=== PATIENT | male | born 1935 | race African-American/Black ===

== ENCOUNTER 2019-06-12 20:47 | Emergency (ER) | payer MEDICARE, OTHER ==
[~2019-06-12] VITALS: Ht 180.3 cm; Wt 57.0 kg
[~2019-06-12 20:47] MED LIST: ALPR0.5T6 PO; BYSTOLIC10 MG PO; LEXAPRO10 MG PO; ONDA-84 PO; SILO8CAP2 PO; SIMV40TA18 PO; ZOLP10TA PO
[2019-06-12] MEDS ORDERED: POLY10DR3 EACHEYE (21:04)
--- NOTE | 2019-06-12 21:05 | PHYS DOC ---
Past Medical History Past Medical History: Anxiety, GERD, High Cholesterol, Hypertension Additional Past Medical Histor: insomnia, BPH Past Surgical History: Other Additional Past Surgical Histo: inguinal hernia Smoking Status: Former Smoker Alcohol Use: None Drug Use: None Adult General Chief Complaint Chief Complaint: EYE PROBLEMS HPI HPI Patient is a 84 year old male who presents with 4 days of right eye itching, redness, drainage. States that it does feel like there is something in his eye at times. Patient denies injury or getting anything in his eye. He states he just awoke like this. He states that when he wakes up in the morning there is a lot of drainage around the eye. Afebrile. Patient is very hypertensive and he has not taken his blood pressure medication while as he is trying to find a new Primary care physician. Patient states that he does not know the name of his blood pressure medication. Review of Systems Review of Systems Eyes: Denies change in visual acuity. Conjunctiva redness, itching, drainage, irritation. Denies eye pain. [] All other systems were reviewed and found to be within normal limits, except as documented in this note. Current Medications Current Medications Current Medications Medications (Trade) Dose Ordered Sig/Valentino Start Time Stop Time Status Last Admin Dose Admin Clonidine HCl (Catapres) 0.1 mg 1X ONCE 06/12/19 21:30 06/12/19 21:31 DC 06/12/19 21:11 0.1 MG Allergies Allergies Allergies Coded Allergies Type Severity Reaction Last Updated Verified No Known Drug Allergies 06/02/14 No Physical Exam Physical Exam Constitutional: Well developed, well nourished, no acute distress, non-toxic appearance. [] HENT: Normocephalic, atraumatic, bilateral external ears normal, oropharynx moist, no oral exudates, nose normal. [] Eyes: PERRLA, EOMI, conjunctiva red, clear discharge. [] Neck: Normal range of motion, no tenderness, supple, no stridor. [] Cardiovascular:Heart rate regular rhythm, no murmur [] Lungs & Thorax: Bilateral breath sounds clear to auscultation [] Abdomen: Bowel sounds normal, soft, no tenderness, no masses, no pulsatile masses. [] Skin: Warm, dry, no erythema, no rash. [] Back: No tenderness, no CVA tenderness. [] Extremities: No tenderness, no cyanosis, no clubbing, ROM intact, no edema. [] Neurologic: Alert and oriented X 3, normal motor function, normal sensory function, no focal deficits noted. [] Psychologic: Affect normal, judgement normal, mood normal. [] Current Patient Data Vital Signs Vital Signs Date Time Temp Pulse Resp B/P (MAP) Pulse Ox O2 Delivery O2 Flow Rate FiO2 06/12/19 21:54 158/89 (112) 06/12/19 21:11 93 06/12/19 21:02 98.1 18 98 Room Air 98.1 EKG EKG [] Radiology/Procedures Radiology/Procedures [] Course & Med Decision Making Course & Med Decision Making Pertinent Labs and Imaging studies reviewed. (See chart for details) Patient rates discomfort a 5 out of 10. He states he can see out of the eye with out any changes to his vision. PERRLA. Conjunctivae is red. Clear drainage around the thigh is seen. Alert And oriented. Speaks in full clear sentences. Ambulatory with a steady gait. Denies chest pain, shortness of air, headache, dizziness, LOC, abdominal pain, nausea, vomiting, fever, weakness, numbness or tingling, vision changes. Patient's blood pressure has come down. Patient remains asymptomatic. Patient is stable and discharged home. [] Dragon Disclaimer Dragon Disclaimer This electronic medical record was generated, in whole or in part, using a voice recognition dictation system. Departure Departure Impression: Primary Impression: Conjunctivitis Disposition: HOME, SELF-CARE Condition: STABLE Referrals: SUGEY RIVERA MD (PCP) Patient Instructions: Conjunctivitis (Viral and Bacterial) Additional Instructions: Follow up with primary care physician as soon as possible. Take your blood pressure medications. Scripts Polymyxin B Sulf/Trimethoprim (POLYMYXIN B-TMP EYE DROPS) 10 Ml Drops 1 DROP EACHEYE QID for 7 Days, #10 ML 0 Refills Prov: ETHAN CORREA APRN 06/12/19 Problem Qualifiers Primary Impression: Conjunctivitis Conjunctivitis type: acute Acute conjunctivitis type: unspecified Laterality: right Qualified Codes: H10.31 - Unspecified acute conjunct ivitis, right eye ETHAN CORREA APRN Jun 12, 2019 21:05
[2019-06-12] MEDS ORDERED: cloNIDine HCL 0.1 MG TABLET PO ONE (21:30)
[2019-06-12 21:54] VITALS: BP 158/89
== END 2019-06-12 21:57 | disposition home or self-care (01) ==
LOC: ER 20:47
DX: H10.31 Unspecified acute conjunctivitis, right eye (principal); K21.9 Gastro-esophageal reflux disease without esophagitis; E78.00 Pure hypercholesterolemia, unspecified; I10 Essential (primary) hypertension; Z87.891 Personal history of nicotine dependence
CPT/HCPCS: 99283

== ENCOUNTER → 2019-10-27 | Outpatient (CLI) | payer MEDICARE, OTHER ==
[~2019-10-27] MED LIST changes: +POLY10DR3 EACHEYE
--- NOTE | 2019-10-27 13:05 | RAD ---
Examination: ABDOMEN COMPLETE History: Abdominal pain Comparison/Correlation: None Findings: Cholecystectomy noted. Hepatic echotexture is normal. Visualized common bile duct is unremarkable.. No biliary dilatation. Right kidney measures 9.4 cm in longitudinal. Left kidney measures 10.3 cm longitudinal. No hydronephrosis. Renal contours and echotexture are unremarkable. No upper abdominal ascites. Pancreas is obscured by bowel gas. Abdominal aorta and inferior vena cava are obscured by bowel gas. Spleen is unremarkable. Impression: No suspicious process. Electronically signed by: Freddy Mayers MD (10/27/2019 1:02 PM) [id number]
== END | disposition home or self-care (01) ==
LOC: US 10:37
PROVIDERS: ATTEND Family Medicine
DX: R10.30 Lower abdominal pain, unspecified (principal); R14.0 Abdominal distension (gaseous); Z90.49 Acquired absence of other specified parts of digestive tract
CPT/HCPCS: 76700

== ENCOUNTER → 2020-04-12 | Outpatient (CLI) | payer MEDICARE, OTHER ==
--- NOTE | 2020-04-12 17:58 | KCIC ---
Examination: XR CHEST 2V History: Reason: Leg swelling, unexplained weight gain. / Spl. Instructions: / History: Comparison/Correlation: 10/01/2014 Findings: Frontal and lateral views of the chest were obtained. Numerous calcified bilateral hilar ly mph and mediastinal lymph nodes are again seen. No infiltrate. No pneumothorax. No effusion. Upper ab dominal surgical clips noted. Convexity of the thoracic spine noted. No acute bony process. Impression: No active disease. Increased size and number of calcified mediastinal and hilar lymph nodes. Electronically signed by: Freddy Mayers MD (04/12/2020 5:55 PM) [id number]
== END ==
LOC: KCIC 12:35
PROVIDERS: ATTEND Family Medicine
DX: I89.8 Other specified noninfective disorders of lymphatic vessels and lymph nodes (principal); R63.5 Abnormal weight gain; R22.40 Localized swelling, mass and lump, unspecified lower limb
CPT/HCPCS: 71046

== ENCOUNTER → 2020-11-01 | Outpatient (CLI) | payer MEDICARE, OTHER ==
[~2020-11-01] MED LIST changes: +REGADENOSON 0.4 MG/5 ML DISP.SYRIN. IV ONE
--- NOTE | 2020-11-01 11:51 | CARD ---
MR#: [id number] Date of Study: 11/01/2020 Ordering Physician: SUZE KENYON, Referring Physician: SUZE KENYON Tech: Alma Rosa Aguayo [facility] APPROVED REPORT EXAM: Two-dimensional and M-mode echocardiogram with Doppler and color Doppler. Other Information Quality : AverageHR: 85bpm Rhythm : . INDICATION Cardiac Disease: RISK FACTORS Hypertension Hyperlipidemia 2D DIMENSIONS RVDd2.9 (2.9-3.5cm)Left Atrium(2D)2.8 (1.6-4.0cm) IVSd1.5 (0.7-1.1cm)Aortic Root(2D)3.5 (2.0-3.7cm) LVDd2.9 (3.9-5.9cm)LVOT Diameter2.1 (1.8-2.4cm) PWd1.1 (0.7-1.1cm)LVDs1.3 (2.5-4.0cm) FS (%) 54.0 %SV28.1 ml Aortic Valve AoV Peak Heriberto.211.7cm/sAoV VTI43.6cm AO Peak GR.17.9mmHgLVOT Peak Heriberto.155.7cm/s AO Mean GR.10mmHgAVA (VMAX)2.50cm2 Mitral Valve MV E Ohxwqfpy55.6cm/sMV DECEL DVLS870nz MV A Ugxzkcfw940.3cm/sE/A Ratio0.6 Tricuspid Valve TR P. Tmtdhuen606ye/sTR Peak Gr.25mmHg LEFT VENTRICLE The left ventricle is normal size. There is moderate concentric left ventricular hypertrophy. The lef t ventricular systolic function is normal. Estimated ejection fraction of 70%. There is normal LV seg mental wall motion. Transmitral Doppler flow pattern is Grade I-abnormal relaxation pattern. RIGHT VENTRICLE The right ventricle is normal size. The right ventricle is mildly hypertrophied. The right ventricula r systolic function is normal. ATRIA The left atrium size is normal. The right atrium size is normal. AORTIC VALVE The aortic valve is calcified but opens well. Doppler and Color Flow revealed no significant aortic r egurgitation. There is no significant aortic valvular stenosis. MITRAL VALVE The mitral valve is thickened but opens well. There is no evidence of mitral valve prolapse. There is no mitral valve stenosis. Doppler and Color Flow revealed trace mitral valve regurgitation. TRICUSPID VALVE The tricuspid valve is normal in structure and function. Doppler and Color Flow revealed trace tricus pid regurgitation. Estimated PAP 30 mmHg. PULMONIC VALVE The pulmonary valve is normal in structure and function. Doppler and Color Flow revealed mild pulmoni c valvular regurgitation. GREAT VESSELS The aortic root is normal in size. The ascending aorta is normal in size. The IVC is normal in size a nd collapses >50% with inspiration. PERICARDIAL EFFUSION There is no evidence of significant pericardial effusion. Critical Notification Critical Value: No <Conclusion> The left ventricle is normal size. The left ventricular systolic function is normal. Estimated ejection fraction of 70%. There is moderate concentric left ventricular hypertrophy. Doppler and Color Flow revealed no significant aortic regurgitation. There is no significant aortic valvular stenosis. Doppler and Color Flow revealed trace mitral valve regurgitation. Doppler and Color Flow revealed trace tricuspid regurgitation. Estimated PAP 30 mmHg. Signed by : Black Springer MD Electronically Approved : 11/01/2020 11:51:39
--- NOTE | 2020-11-01 17:38 | RAD ---
MR#: [id number] Date of Study: 11/01/2020 Ordering Physician: SUZE KENYON, Referring Physician: ADALBERTO RONDON Tech: RODNEY Obrien, AYDIN (R) (N) APPROVED REPORT Test Type: Pharmacological Stress Nurse/Tech: Gail Lin RN Test Indications: Chest Pain Cardiac History: Murmur, HTN, See EMR. Medications: See EMR. Medical History: Seizures, See EMR. Resting ECG: SR Resting Heart Rate: 87 bpm Resting Blood Pressure: 152/86mmHg Pretest Chest Pain: No chest pain Nurse/Tech Notes Lungs CTA, Murmur ascultated. Consent: The procedure was explained to the patient in lay terms. Informed consent was witnessed. Luis eout was entered into [employer]. History and Stress Test performed by RT Rochelle (R) (N) Pharm. Details Pharmacologic stress testing was performed using 0.4mg per 5ml of regadenoson given intravenously ove r 7-10 seconds. Stress Symptoms No chest pain or symptoms. POST EXERCISE Reason for Termination: Infusion complete Max HR: 113 bpm Max Blood Pressure: 143/75mmHg Blood Pressure response to exercise: Normal blood pressure response during stress. Heart Rate response to exercise: WNL Chest Pain: No. Arrhythmia: No. INTERPRETATION Stress EKG Conclusion: The resting EKG shows a sinus rhythm and mild nonspecific ST-T wave changes. The stress EKG shows no significant changes from baseline. No EKG evidence of stress-induced ischemia. Imaging Protocol IMAGE PROTOCOL: Rest Tc-99m/stress Tc-99m 1 day Rest: Stress: Viability: Radiopharm.Tc99m PxdzycgucBk88k Sestamibi Dose10.7mCi 32.1mCi Img Date 11/01/2020 11/01/2020 Inj-Img [id number]. 60min. Rest Admin Site:IV - Right WristAdministrator:RODNEY Obrien, ARRT (R)(N) Stress Admin Site: IV - Right WristAdministrator: RT Jolanta Byrd)(N) STRESS DATA End Diast. Vol.36.0mlAv. Heart Rate90.0bpm End Syst. Vol.2.0mlCO Index BSA0.0L/min Myocardial Mass83.0gEject. Sflcopkp02.0% Stress Rates Pk. Fill Rate4.08EDV/secLVtime Pk. Fill 166.01msec Pk. Empty Rate8.06ESV/secLVtime Pk. Dzmaz281.60msec 1/3 Pk. Fill2.72EDV/sec Stress Scores Regional WT1.00Summed WT11.00 Regional WM0.00Summed WM0.00 LV Perfusion The stress scans showed no significant defects. The rest scans showed no significant defects. Nuclear imaging shows no reversible ischemia or infarct. Wall Motion Left ventricular systolic function is normal with no regional wall motion abnormalities and an ejecti on fraction of greater than 70%. LV Perf. Quant 17 Seg. SSS0.00 17 Seg. SRS3.00 17 Seg. SDS0.00 Stress Defect Extent (% LAD)0.00Rest Defect Extent (% LAD)0.00Rev. Defect Extent (% LAD)0.00 Stress Defect Extent (% LCX) 0.00Rest Defect Extent (% LCX)20.00Rev. Defect Extent (% LCX)0.00 Stress Defect Extent (% RCA)0.00Rest Defect Extent (% RCA)0.00Rev. Defect Extent (% RCA)0.00 Stress Defect Extent (% DOREEN)0.00Rest Defect Extent (% DOREEN)3.50Rev. Defect Extent (% DOREEN)0.00 Conclusion 1. No EKG evidence of stress-induced ischemia. 2. Nuclear imaging shows no reversible ischemia or infarct. 3. Normal left ventricular systolic function with an ejection fraction of greater than 70%. 4. Low risk Lexiscan nuclear stress test. Signed by : Black Springer MD Electronically Approved : 11/01/2020 17:37:54
== END ==
LOC: NM 08:49
PROVIDERS: ATTEND Internal Medicine Cardiovascular Disease
DX: I08.8 Other rheumatic multiple valve diseases (principal); R01.1 Cardiac murmur, unspecified
CPT/HCPCS: 78452; 93017; 93306; A9500; J2785

== ENCOUNTER → 2020-12-21 | Outpatient (CLI) | payer MEDICARE, OTHER ==
[~2020-12-21] MED LIST changes: -REGADENOSON 0.4 MG/5 ML DISP.SYRIN. IV ONE
--- NOTE | 2020-12-21 14:47 | KCIC ---
EXAM: CT CHEST WITHOUT CONTRAST HISTORY: Calcified adenopathy, shortness of air, interstitial lung disease COMPARISON: CT chest 11/20/2010 TECHNIQUE: Helical CT of the chest performed without contrast. Coronal and sagittal reformats were o btained. One or more of the following individualized dose reduction techniques were utilized for this examinat ion: 1. Automated exposure control 2. Adjustment of the mA and/or kV according to patient size 3. Use of iterative reconstruction technique. FINDINGS: Thyroid gland and thoracic inlet: Normal. Heart and great vessels: The heart is normal in size. There are extensive coronary artery and aortic valve calcifications. No pericardial effusion. The thoracic aorta is normal in caliber. Mediastinum and jose elias: Diffuse calcified mediastinal and hilar lymphadenopathy is unchanged. There is mild distal esophageal wall thickening, which can be seen with esophagitis. Lungs and pleura: Linear peribronchovascular confluent opacities with associated volume loss and bron chiectasis in the lower lobes are unchanged. There are unchanged scattered nodular and masslike conso lidative opacities areas of architectural distortion bilaterally. For example, there is a 3.2 x 1.2 c m consolidative opacity in the posterior left upper lobe abutting the fissure with some internal calc ification. There is a 6 mm nodule with some distortion along the right major fissure, unchanged. Ther e are mild linear confluent opacities in the right middle lobe and upper lobes. Mild nodular opacitie s in the anterior medial left upper lobe. There is a new small consolidative opacity in the perihilar right upper lobe. There is unchanged mild pleural parenchymal scarring in the apices. Central airway s are clear. No pleural effusion. Chest wall and axillae: No axillary lymphadenopathy. Upper abdomen: There are mildly calcified lymph nodes in the upper abdomen, unchanged. Bones: There i s dextroscoliosis of the thoracic spine. There is a old compression fracture of L2. Mild degenerative disc disease. IMPRESSION: Unchanged calcified mediastinal and hilar lymphadenopathy . 2. Bilateral peribronchovascular scarring or fibrosis in the lower lobes and scattered nodular and ma sslike consolidation with architectural distortion. This is unchanged to minimally increased in a few areas. Findings could be seen with chronic granulomatous disease, interstitial lung disease or pneum oconiosis. 3. Extensive coronary artery and aortic valve calcifications. Electronically signed by: Annita Carrillo MD (12/21/2020 2:44 PM) [id number]
== END ==
LOC: KCIC CT 09:07
PROVIDERS: ATTEND Internal Medicine Critical Care Medicine
DX: R59.0 Localized enlarged lymph nodes (principal); I25.10 Atherosclerotic heart disease of native coronary artery without angina pectoris; I70.0 Atherosclerosis of aorta; J47.9 Bronchiectasis, uncomplicated; R91.8 Other nonspecific abnormal finding of lung field; J84.9 Interstitial pulmonary disease, unspecified; R06.02 Shortness of breath
CPT/HCPCS: 71250

== ENCOUNTER → 2020-12-26 | Outpatient (CLI) | payer MEDICARE, OTHER ==
--- NOTE | 2020-12-26 14:32 | KCIC ---
Bilateral lower extreme ABIs, and bilateral lower extremity arterial duplex ultrasound study without comparison for nonpalpable pulses, hypertension. TECHNIQUE: A lateral ABIs are obtained along with real-time grayscale and color and spectral Doppler evaluation of the arteries of lower extremities. The STEVEN on the right is 1.0 and on the left 0.93. Th ere is moderate multifocal atherosclerosis. On the right, the common femoral, deep femoral, superfici al femoral, and popliteal arteries are patent and demonstrate normal phasicity. There is abnormal mon ophasic flow within the distal posterior tibial and dorsalis pedis arteries, possibly due to trifurca tion disease. Abnormal flow within the peroneal and anterior tibial arteries as well. On the left, th e common femoral, deep femoral, superficial femoral, popliteal, posterior tibial, and anterior tibial arteries are all patent with normal phasicity and no abnormal velocities. There is monophasic flow w ithin the dorsalis pedis artery however. IMPRESSION: 1. Normal ABIs. 2. Widely patent arteries above the knees bilaterally. 3. Abnormal flow is suggested within the runoff vessels on the right, possibly due to distal poplitea l or tibial peroneal stenosis. 4. Abnormal flow within the dorsalis pedis artery of the left foot, with patency of the runoff vessel s proximally. If this patient is asymptomatic with absent pulses, or experiences claudication without rest pain, co ntinued surveillance and optimal medical management is encouraged. On the other hand, if this patient has nonhealing wounds or rest pain involving right lower extremity below the knee, they may benefit from consultation with endovascular specialist for possible angiography and attempted endovascular re construction. If so desired, we would be happy to see him in our IR clinic in this regard. Referral c an be made by faxing written order to [phone]. Electronically signed by: Kiran Ron MD (12/26/2020 2:29 PM) [id number]
== END ==
LOC: KCIC US 12:18
PROVIDERS: ATTEND Podiatrist
DX: I73.9 Peripheral vascular disease, unspecified (principal)
CPT/HCPCS: 93922; 93925